=== PATIENT | male | born 1970 | race Caucasian/White ===

== ENCOUNTER 2020-08-21 15:05 | Outpatient (RCR) | payer BC, SELFPAY ==
[2020-08-21] MEDS: COVID-19 VACC, MRNA(PFIZER)/PF 30 MCG/0.3 ML SYRINGE IM (16:30)
[2020-09-11] MEDS: COVID-19 VACC, MRNA(PFIZER)/PF 30 MCG/0.3 ML SYRINGE IM (15:26)
== END 2020-08-21 23:59 ==
LOC: IMMUN 15:05
PROVIDERS: PCP Nurse Practitioner Primary Care; Visit Provider Family Medicine
DX: Z23 Encounter for immunization (principal)
CPT/HCPCS: 0001A; 0002A; 91300

== ENCOUNTER 2021-04-27 17:00 | Outpatient (RCR) | payer BC, SELFPAY ==
--- NOTE | 2021-04-06 13:21 | HP.PTEVAL_ITS ---
Patient's Visit Information RICKEY MCBRIDE is a 51 year old M referred to Physical Therapy by Kate Copeland NP with a diagnosis of CVA. Date of Evaluation: 04/06/21 Physical Therapist: Fahad Crawford PT, ATC - Visit Plan Frequency: 2-3x /Week Duration: 4-6 Weeks Plan: B LE strengthening, balance and proprio, core stab ex's, bike, and HEP - Subjective CVA: 01/2020. Pt reports he was having surgery for a dissected aorta when he suddenly had a stroke. Pt reports his arms where the most affected from his stroke. Pt notes he lacks fine motor skills as a result of his stroke in the UE's. Pt reports he is also weak in the legs, but its not due to the stroke, it is due to the inactivity he has had recently secondary to his stroke. Pt reports he feels like his balance is also off at this time secondary to the inactivity he has been going through. Pt reports he has had recent falls with the last one being approximately one month ago when he attempted to go on a walk and fell into the ditch. Pt denies tingling or numbness in LE's at this time. Pt denies any pain at this time. Pt notes he has difficulty with transfers secondary to LE weakness. Pt is unable to sleep on a couch secondary to not being able to get off of it I. - Objective Neuro: B LE sensation is WNL to light touch. B patellar reflex= 2/3. ROM: MMT: FGA - Balance/Special Test Scores Functional Gait Assessment Score: 12 % Disability: 60.0000 Lower Extremity Functional Score: 29 - Goals Goal 1:: Increase B LE strength x 1 grade to aid with stair negotiation Goal Time Frame: 4-6 Weeks Goal 2:: Increase FGA score 5 points to aid with preventing future falls Goal Time Frame: 4-6 Weeks Goal 3:: I with HEP Goal Time Frame: 4-6 Weeks - Rehabilitation Potential Physical Therapy Diagnosis: Pt has B LE weakness, unsteady gait, and decreased balance secondary to residual effects from CVA Rehabilitation Potential: Good - Anticipated Interventions Patient/Client Instruction: Educate patient on: Condition, Plan of Care For the Purpose of:: To improve self management Therapeutic Exercise to Include: Strength training, Endurance training, Balance training, Gait and locomotor training, Dynamic Lumbar Stabilization For the Purpose of:: To improve muscle performance and motor function, To improve ability to perform ADL's, To increase tolerance to activity/condition/position Thank you for the opportunity to evaluate your patient. For Medicare and Medicare HMO plans, please review the plan of care and approve it. It will need to be FAXED BACK to us at [phone] for Medicare purposes. For Medicare only, by signing this I certify the plan of care. Please let me know if there are questions or concerns regarding this plan of care. Physician Signature: Date:
--- NOTE | 2021-06-21 11:14 | HP.PT.NRP ---
RICKEY MCBRIDE was seen in my office for initial evaluation on 04/06/21. The following Plan of Care was established for this patient: Initial Frequency: 2-3x /Week Initial Duration: 4-6 Weeks Patient/Client Instruction: Educate patient on: Condition, Plan of Care For the Purpose of:: To improve self management Therapeutic Exercise to Include: Strength training, Endurance training, Balance training, Gait and locomotor training, Dynamic Lumbar Stabilization For the Purpose of:: To improve muscle performance and motor function, To improve ability to perform ADL's, To increase tolerance to activity/condition/position This patient was last seen in our office . Pertinent comments regarding their Physical therapy will appear below: Pt was treated for 5 PT visits for CVA through the date of 04/27/21. Pt has not returned today and is therefore discontinued at this time. At this point I will be discontinuing this patient from physical therapy. I would be happy to see this patient again in the future if found appropriate by the physician. Thank you! Fahad Crawford, PT, ATC Balance/Gait/Functional tests - Balance/Special Test Scores Functional Gait Assessment Score: 12 % Disability: 60.0000 Lower Extremity Functional Score: 29
== END 2021-04-27 19:00 | disposition home or self-care (01) ==
LOC: PT 17:00
PROVIDERS: PCP Nurse Practitioner Primary Care; Referring Provider Nurse Practitioner Primary Care; Visit Provider Nurse Practitioner Primary Care
DX: Z86.73 Personal history of transient ischemic attack (TIA), and cerebral infarction without residual deficits (principal)
CPT/HCPCS: 97110; 97161

== ENCOUNTER 2022-04-08 08:07 | Outpatient (RCR) | payer BC, SELFPAY ==
--- NOTE | 2022-04-08 11:19 | HP.OTFCE.D ---
FCE D/C Summary - Discharge RICKEY Loida MCBRIDE was seen for a one time visit for an FCE on 04/08/22 and is discharged.
--- NOTE | 2022-04-08 11:19 | HP.FCE ---
Floor (Occasional 1-33% of Day): 15# Floor (Frequent 34-66% of Day): NA Floor (Constant 67-100% of Day): NA Floor PDL: Sedentary-Light Knee (Occasional 1-33% of Day): 25# Knee (Frequent 34-66% of Day): NA Knee (Constant 67-100% of Day): NA Knee PDL: Light Waist (Occasional 1-33% of Day): 25# Waist (Frequent 34-66% of Day): NA Waist (Constant 67-100% of Day): NA Waist PDL: Light Shoulder (Occasional 1-33% of Day): 15# Shoulder (Frequent 34-66% of Day): NA Shoulder (Constant 67-100% of Day): NA Shoulder PDL: Sedentary Overhead (Occasional 1-33% of Day): NA Overhead (Frequent 34-66% of Day): NA Overhead (Constant 67-100% of Day): NA Overhead PDL: No Ability Comments: pt demo poor balance with lifting - therapist use of gait belt to provide support to prevent fall. would not rec'd lifting without Contact guard assistance- Bending: Occasional Ability (1-33% of day) Comments: pt with external support and required CGA due to fair-/poor balance Squatting: No Ablility (0% of day) Comments: pt requires CGA due to fair-/poor balance Kneeling: No Ablility (0% of day) Reaching out: Occasional Ability (1-33% of day) Comments: while sitting but unable to use hands to grasp objects due to ataxic motion Reaching up: Occasional Ability (1-33% of day) Comments: while sitting but unable to use hands to grasp objects due to ataxic motion Sitting: Constant Ability (67-100% of day) Walking: Occasional Ability (1-33% of day) Comments: pt demo low ability to ambulate safety Standing: Occasional Ability (1-33% of day) Comments: with use of external support Duration Sedentary Sedentary Light Light Light Medium Medium Medium Heavy Very Heavy Heavy Occasional (0-33% of day) Frequent (34-66% of day) Constant (67-100% of day) 10 # Negligible Negligible 15 # 8 # Negligible 20 # 10# Negli. 35 # 18 # 7 # 50 # 25 # 10 # 75 # 100 # >100 # 38 # 50 # >50 # 15 # 20 # >20 # Weight:: 99.79 kg Hand Dominance: right BP (Medication Use/Usual Values per pt report): resting heart rate 95 Medical History Including Restrictions: This 52 year male was seen for FEC- pt states in 2019 pt had disection aorta that required sx and during sx he suffered a stroke. Pt since then has been through therapy both OT/PT. pt states he has gained some function back but is still significantly limited with mobility and the ability to perform ADLs and IADLS. Diagnoses: CVA. HTN Symptoms: weakness. abnormal gait. poor balance. loss of sensation in bilateral Hands. 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 pt states he was employed there for 11 years until he suffered his stroke. Behavioral: pt demo good participation and put forth good effort during the assessment. ADLS: Pt lives with significant other in duplex, single story no entry step- pt has tub shower combination- pt has grab bars on shower wall- pt needs assist with showering due to his balance and coordination- pt has assistance from significant other that does the cooking-cleaning and will drive him to his apts. pt needs assistance with all bathing/dressing and meals- ROM: pt demo with ridged/ataxic movement patterns in bilateral UE and LE-. pt demo with limited hip flex at 80* bilaterally. bilateral hand deformities of mcp in flexion vs able to form composite fist without increase time or concentration Strength: right shoulder flexion peak force 7# left 6#. right triceps 17# left 13#. right biceps 7# left 6#. right hip flexion 27# left 24#. right quad 22# left 21#. right hamstring 21# left 21#. pt demo demo with generalized weakness grossly throughout Right Field Representative/Health Education Strength Average: 35.00 Right Field Representative/Health Education Strength Percentile: <.8% Left Field Representative/Health Education Strength Average: 20.00 Left Field Representative/Health Education Strength Percentile: <1.8% Right Lateral Pinch Average: 12.00 Right Lateral Pinch Percentile: <10% Left Lateral Pinch Average: 5.33 Left Lateral Pinch Percentile: <10% Right Tripod Pinch Average: 8.00 Right Tripod Pinch Percentile: <10% Left Tripod Pinch Average: 0 Left Tripod Pinch Percentile: unable Comments: pt demo with more of MCP flexion with grasp vs the ability to close bilateral hands in composite fist. pt unable to place fingers of left hand in tripod grasp due to ataxic movement therefore he was unable to perform tripod pinch testing on left. pt demo sig. decrease in youth coordinator and pinch strength for his age. Sensation: Neche-Portia monofilament sensory testing. bilateral all digits 3.61 interpretation of diminished light touch Fine Motor: 9 hole peg for fine motor skill testing. right 1min 38.03sec. left 2min 49.06sec. a person this age average completion of this test is typically 21-23 sec. pt tested significantly above indication of dietary server limitations on his ability to perform fine motor tasks. pt demo with ridged digital motion and more of a straight finger grasp on objects vs the ability to form a composite fist-. pt unable to manipulate fasteners. Balance: pt demo with poor balance with loss of balance x 2 during assessment-. pts ridged movements increase risk of falling. Bending: pt demo poor ability to bend forward without assistance- therapist use of gait belt and pt use of external support he was able to bend forward in limited plan of motion- pt demo poor balance. pt can bend forward on low occasional ability with external support- would rec'd CGA from another person to decrease risk of falls Squatting: pt demo the ability to squat three times with external support therapist used gait belt while pt was performing - pt demo poor balance. pt can be squat on low occasional ability with external support- would rec'd CGA from another person to decrease risk of falls Kneeling: unable Reaching out/up: pt demo with very ridged movement patterns of bilateral UE - with reaching up/out pt is unable to open hands ( the clench into fist). pt completed reaching up/out while sitting 3/3x, and 10/10x - pt unable to perform rapidly. pt able to reach out/up on low occasional ability --but note not functional as he can not grasp objects at these levels due to ataxic and poor fine motor ability. Walking: pt ambulates with shuffled gait pattern arms elevated and when given verbal cues to lower arms pt would loss his balance- pt demo need for increase concentration with ambulation limiting the ability to multi task of lowering arms. therapist used gait belt for safety and pt required CGA with ambulation verbal cues to slow shuffle gait as body tends to get ahead of pts feet. pt can ambulate on low occasional ability (would rec'd assistive device to decrease fall risk) Standing: pt demo the ability to stand with external support with ridged stance for 4 min. pt can stand on low occasional ability. Sitting: pt demo the ability to sit for 55 min with no expressed or apparent discomfort- pt can sit on frequent ability Climbing Stairs: unable Floor Lift: pt demo the ability to lift 15# maximally from floor level with poor lifting mechanics. Physical demand level as Sedentary light-. Therapist did use gait belt and CGA Knee Lift: pt demo the ability to lift 25# maximally from floor level with poor lifting mechanics. Physical demand level as Light-. Therapist did use gait belt and CGA Waist Lift: pt demo the ability to lift 25# maximally from floor level with poor lifting mechanics. Physical demand level as Light-. Therapist did use gait belt and CGA Shoulder Lift: pt demo the ability to lift 15# maximally from floor level with poor lifting mechanics. Physical demand level as Sedentary Light. Therapist did use gait belt and CGA Overhead Lift: unable Carrying: unable Comments: lifting boxes have carved handles- pt unable to get hand into cutout but used finger tips as able to lift boxes- pts ataxic movement patterns and poor balance increase risk of falls and safety.
== END 2022-04-08 19:00 | disposition home or self-care (01) ==
LOC: OT 08:07
PROVIDERS: PCP Nurse Practitioner Primary Care; Referring Provider Nurse Practitioner Primary Care; Visit Provider Nurse Practitioner Primary Care
DX: I63.9 Cerebral infarction, unspecified (principal)
CPT/HCPCS: 97750